=== PATIENT | male | born 1950 | race Caucasian/White ===

== ENCOUNTER 2021-05-19 14:40 | Outpatient (CLI) | payer MEDICARE | END 2021-05-19 14:41 | disposition home or self-care (01) | LOC: BICULT 14:40 | PROVIDERS: ATTEND Family Medicine | DX: N39.490 Overflow incontinence (principal); N28.1 Cyst of kidney, acquired; N40.0 Benign prostatic hyperplasia without lower urinary tract symptoms; N32.89 Other specified disorders of bladder | CPT/HCPCS: 76770 ==

== ENCOUNTER 2024-06-11 13:59 | Outpatient (CLI) | payer MEDICARE | END 2024-06-11 14:00 | disposition home or self-care (01) | LOC: SCSRAD 13:59 | PROVIDERS: ATTEND Student in an Organized Health Care Education/Training Program | DX: R91.8 Other nonspecific abnormal finding of lung field (principal) | CPT/HCPCS: 71046 ==